=== PATIENT | female | born 1960 | race Caucasian/White ===

== ENCOUNTER 2019-05-18 11:31 | Emergency (ER) | payer BC ==
[~2019-05-18] VITALS: Ht 170.2 cm; Wt 79.4 kg
[2019-05-18 11:53] VITALS: BP 141/68
[2019-05-18] MEDS ORDERED: diphenhydrAMINE HCL 25 MG CAPSULE PO ONE (12:00)
--- NOTE | 2019-05-18 12:54 | PHYS DOC ---
Past Medical History Past Medical History: No Pertinent History Past Surgical History: No Surgical History Alcohol Use: None Drug Use: None Adult General Chief Complaint Chief Complaint: ALLERGIC REACTION HPI HPI Patient is a 58 year old female who presents with complaining of allergic reaction. Patient states she had IV dye injection for evaluation of left eye problem and one was on her way to go home felt burning during sinus sternal area and lip edema like her previous allergic reaction to morphine. Patient denies shortness of breath, rash, tongue and throat swelling. Patient states her symptoms is getting better. Review of Systems Review of Systems Constitutional: Denies fever or chills [] Eyes: Denies change in visual acuity, redness, or eye pain [] HENT: Denies nasal congestion or sore throat [] Respiratory: Denies cough or shortness of breath [] Cardiovascular: No additional information not addressed in HPI [] GI: Denies abdominal pain, nausea, vomiting, bloody stools or diarrhea [] : Denies dysuria or hematuria [] Musculoskeletal: Denies back pain or joint pain [] Integument: Denies rash or skin lesions [] Neurologic: Denies headache, focal weakness or sensory changes [] Endocrine: Denies polyuria or polydipsia [] All other systems were reviewed and found to be within normal limits, except as documented in this note. Current Medications Current Medications Current Medications Medications (Trade) Dose Ordered Sig/Vilma Start Time Stop Time Status Last Admin Dose Admin Diphenhydramine HCl (Benadryl) 25 mg 1X ONCE 05/18/19 12:00 05/18/19 12:01 DC 05/18/19 12:08 25 MG Allergies Allergies Allergies Coded Allergies Type Severity Reaction Last Updated Verified No Known Drug Allergies 05/18/19 No Physical Exam Physical Exam Constitutional: Well developed, well nourished, no acute distress, non-toxic appearance. [] HENT: Normocephalic, atraumatic, bilateral external ears normal, oropharynx moist, no oral exudates, nose normal,mild lower lip edema. [] Eyes: PERRLA, EOMI, conjunctiva normal, no discharge. [] Neck: Normal range of motion, no tenderness, supple, no stridor. [] Cardiovascular:Heart rate regular rhythm, no murmur [] Lungs & Thorax: Bilateral breath sounds clear to auscultation [] Abdomen: Bowel sounds normal, soft, no tenderness, no masses, no pulsatile masses. [] Skin: Warm, dry, no erythema, no rash. [] Back: No tenderness, no CVA tenderness. [] Extremities: No tenderness, no cyanosis, no clubbing, ROM intact, no edema. [] Neurologic: Alert and oriented X 3, normal motor function, normal sensory function, no focal deficits noted. [] Psychologic: Affect normal, judgement normal, mood normal. [] Current Patient Data Vital Signs Vital Signs Date Time Temp Pulse Resp B/P (MAP) Pulse Ox O2 Delivery O2 Flow Rate FiO2 05/18/19 11:53 98.6 68 17 141/68 (92) 92 Room Air 98.6 EKG EKG [] Radiology/Procedures Radiology/Procedures [] Course & Med Decision Making Course & Med Decision Making Evaluation in ER showed 58-year-old female patient with lip edema and burning in her chest after IV contrast that ER. Patient had unremarkable physical exam except for mild lip edema that improved after Benadryl. Patient was advised to follow-up with her primary care physician. Dragon Disclaimer Dragon Disclaimer This electronic medical record was generated, in whole or in part, using a voice recognition dictation system. Departure Departure Impression: Primary Impression: Allergic reaction to contrast dye Disposition: HOME, SELF-CARE Condition: IMPROVED Referrals: DUC DO MD (PCP) Patient Instructions: Allergies, Generic Additional Instructions: Drink plenty of liquids Follow-up with your primary care physician in 3-5 days Return to ER if not getting better May take opop-jwn-[id number] Benadryl as needed for allergy symptoms Problem Qualifiers Primary Impression: Allergic reaction to contrast dye Encounter type: initial encounter Qualified Codes: T50.8X5A - Adverse effect of diagnostic agents, initial encounter SOWMYA DOSHI MD May 18, 2019 12:54
== END 2019-05-18 13:10 | disposition home or self-care (01) ==
LOC: ER 11:31
DX: K13.0 Diseases of lips (principal); Y92.89 Other specified places as the place of occurrence of the external cause; Z91.041 Radiographic dye allergy status; T50.8X5A Adverse effect of diagnostic agents, initial encounter
CPT/HCPCS: 99282; Q0163